=== PATIENT | female | born 1980 | race African-American/Black ===

== ENCOUNTER 2017-09-15 14:25 | Observation (INO) | payer MEDICARE, MEDICAID ==
[~2017-09-15] VITALS: Ht 162.6 cm; Wt 70.0 kg
[~2017-09-15 14:25] MED LIST: VALA500T PO
[2017-09-15 14:30] VITALS: BP 124/67; PULSE 52; RESP 16; TEMP 98.3; O2SAT 100
[2017-09-15] MEDS ORDERED: SODIUM CHLORIDE 0.9% FLUSH 10 ML FLUSH IVF PRN (15:00)
[2017-09-15] MEDS ORDERED: ASPIRIN 81 MG CHEW TAB PO ONE (15:00)
[2017-09-15] MEDS ORDERED: MORPHINE SULFATE 4 MG/ML INJ IV PUSH ONE (15:00)
[2017-09-15] MEDS ORDERED: SODIUM CHLORID 0.9% 500 ML INJ 500 ML IV ONE (15:00)
[2017-09-15] MEDS ORDERED: estrogen (15:04)
[2017-09-15 15:05] VITALS: O2SAT 100
[2017-09-15 15:24] LABS: AUTOMATED NEUTROPHIL # 2.5 TH/MM3 (1.8-7.7); BASOPHIL % 0.5 % (0.0-2.0); EOSINOPHIL # 0.1 TH/MM3 (0-0.4); EOSINOPHIL % 1.6 % (0.0-4.0); HEMOGLOBIN 12.6 GM/DL (11.6-15.3); LYMPH % 43.5 % (9.0-44.0); LYMPHOCYTE # 2.3 TH/MM3 (1.0-4.8); MEAN CELL VOLUME 92.8 FL (80.0-100.0); MEAN CORPUSCULAR HEMOGLOBIN 30.7 PG (27.0-34.0); MEAN CORPUSCULAR HGB CONC 33.1 % (32.0-36.0); MEAN PLATELET VOLUME 8.4 FL (7.0-11.0); MONOCYTE # 0.3 TH/MM3 (0-0.9); NEUT % 48.4 % (16.0-70.0); PLATELET COUNT 211 TH/MM3 (150-450); RED BLOOD COUNT 4.09 MIL/MM3 (4.00-5.30); RED CELL DISTRIBUTION WIDTH 14.4 % (11.6-17.2); WHITE BLOOD COUNT 5.2 TH/MM3 (4.0-11.0)
[2017-09-15 15:34] LABS: PROTHROMBIN TIME - PATIENT 10.3 SEC (9.8-11.6)
--- NOTE | 2017-09-15 15:36 | PD ---
HPI Chief Complaint: Chest Pain Time Seen by Provider: 14:39 Travel History International Travel<30 days: No Contact w/Intl Traveler<30days: No Traveled to known affect area: No History of Present Illness HPI Patient is a 37-year-old female presenting to the emergency department for evaluation of chest pain. Chest pain started yesterday, patient initially thought it was indigestion. When symptoms did not improve this morning patient presented to the emergency department. Patient reports that the chest pain is accompanied by shortness of breath and she feels lightheaded. The pain radiates to her right arm. She states it is pressure-like. She rates her pain 8 out of 10, constant. Patient has a history of cervical cancer. She is currently on hormone replacement. She denies any early family history of heart disease. Her mother at 53 of cancer. She does not know her father. Patient has no history of blood clots. PFSH Past Medical History Anemia: Yes Asthma: Yes Depression: Yes Cancer: Yes (cervical) Cardiovascular Problems: Yes Chemotherapy: Yes (HX OF) GERD: Yes Genitourinary: Yes Headaches: Yes (MIGRAINES) Musculoskeletal: No Psychiatric: Yes (POST DEPRESSION) Migraines: Yes Influenza Vaccination: No ?: Not : 5 Para: 4 Miscarriage: 1 : 00 Dilation and Curettage (D&C): Yes Tubal Ligation: Yes Past Surgical History Gynecologic Surgery: Yes (D&C) Hysterectomy: Yes Other Surgery: Yes (port a cath placed and removed) Social History Alcohol Use: No Tobacco Use: No Substance Use: Yes (marijuana) Allergies-Medications (Allergen,Severity, Reaction): Coded Allergies: oxacillin (Unverified Allergy, Severe, 09/15/17) hives sulfamethoxazole (Unverified Allergy, Severe, 09/15/17) HIVES trimethoprim (Unverified Allergy, Severe, 09/15/17) HIVES Reported Meds & Prescriptions Reported Meds & Active Scripts Active Valacyclovir (Valacyclovir HCl) 500 Mg Tab 500 Mg PO BID At the onset of symptoms, take for 3 days. Reported [estrogen ] Review of Systems Except as stated in HPI: all other systems reviewed are Neg HENT: Positive: Lightheadedness, No: Headaches Cardiovascular: Positive: Chest Pain or Discomfort, Dyspnea on exertion Respiratory: Positive: Shortness of Breath Gastrointestinal: No: Nausea, Abdominal Pain Neurologic: Positive: Dizziness Physical Exam Narrative GENERAL: Well-developed, well-nourished, alert -[place] female. Presenting in no acute distress SKIN: Warm and dry. HEAD: Atraumatic. Normocephalic. EYES: Pupils equal and round. No scleral icterus. No injection or drainage. ENT: No nasal bleeding or discharge. Mucous membranes pink and moist. NECK: Trachea midline. No JVD. CARDIOVASCULAR: Regular rate and rhythm. RESPIRATORY: No accessory muscle use. Clear to auscultation. Breath sounds equal bilaterally. GASTROINTESTINAL: Abdomen soft, non-tender, nondistended. Hepatic and splenic margins not palpable. MUSCULOSKELETAL: Extremities without clubbing, cyanosis, or edema. No obvious deformities. NEUROLOGICAL: Awake and alert. No obvious cranial nerve deficits. Motor grossly within normal limits. Five out of 5 muscle strength in the arms and legs. Normal speech. PSYCHIATRIC: Appropriate mood and affect; insight and judgment normal. Data Data Last Documented VS Vital Signs Date Time Temp Pulse Resp B/P (MAP) Pulse Ox O2 Delivery O2 Flow Rate FiO2 09/15/17 15:05 100 Room Air 09/15/17 14:30 98.3 52 16 124/67 (86) Orders Orders Electrocardiogram (09/15/17 15:00) B-Type Natriuretic Peptide (09/15/17 15:00) Ckmb (Isoenzyme) Profile (09/15/17 15:00) Complete Blood Count With Diff (09/15/17 15:00) Comprehensive Metabolic Panel (09/15/17 15:00) Magnesium (Mg) (09/15/17 15:00) Prothrombin Time / Inr (Pt) (09/15/17 15:00) Act Partial Throm Time (Ptt) (09/15/17 15:00) Troponin I (09/15/17 15:00) Lipase (09/15/17 15:00) Chest, Single Ap (09/15/17 15:00) Ecg Monitoring (09/15/17 15:00) Bilateral Bp Monitoring (09/15/17 15:00) Iv Access Insert/Monitor (09/15/17 15:00) Oximetry (09/15/17 15:00) Oxygen Administration (09/15/17 15:00) Aspirin Chew (Aspirin Chew) (09/15/17 15:00) Morphine Inj (Morphine Inj) (09/15/17 15:00) Sodium Chloride 0.9% Flush (Ns Flush) (09/15/17 15:00) Sodium Chlorid 0.9% 500 Ml Inj (Ns 500 M (09/15/17 15:00) Ct Pulmonary Angiogram (09/15/17 ) CKMB (09/15/17 15:04) CKMB% (09/15/17 15:04) Al-Mag Hy-Si 40-40-4 Mg/Ml Liq (Mag-Al P (09/15/17 16:15) Iohexol 350 Inj (Omnipaque 350 Inj) (09/15/17 17:07) Admit Order (Ed Use Only) (09/15/17 17:22) Labs Laboratory Tests Test 09/15/17 15:04 White Blood Count 5.2 TH/MM3 Red Blood Count 4.09 MIL/MM3 Hemoglobin 12.6 GM/DL Hematocrit 38.0 % Mean Corpuscular Volume 92.8 FL Mean Corpuscular Hemoglobin 30.7 PG Mean Corpuscular Hemoglobin Concent 33.1 % Red Cell Distribution Width 14.4 % Platelet Count 211 TH/MM3 Mean Platelet Volume 8.4 FL Neutrophils (%) (Auto) 48.4 % Lymphocytes (%) (Auto) 43.5 % Monocytes (%) (Auto) 6.0 % Eosinophils (%) (Auto) 1.6 % Basophils (%) (Auto) 0.5 % Neutrophils # (Auto) 2.5 TH/MM3 Lymphocytes # (Auto) 2.3 TH/MM3 Monocytes # (Auto) 0.3 TH/MM3 Eosinophils # (Auto) 0.1 TH/MM3 Basophils # (Auto) 0.0 TH/MM3 CBC Comment DIFF FINAL Differential Comment Prothrombin Time 10.3 SEC Prothromb Time International Ratio 1.0 RATIO Activated Partial Thromboplast Time 27.5 SEC Blood Urea Nitrogen 10 MG/DL Creatinine 0.77 MG/DL Random Glucose 89 MG/DL Total Protein 8.8 GM/DL Albumin 4.3 GM/DL Calcium Level 9.2 MG/DL Magnesium Level 2.1 MG/DL Alkaline Phosphatase 82 U/L Aspartate Amino Transf (AST/SGOT) 49 U/L Alanine Aminotransferase (ALT/SGPT) 30 U/L Total Bilirubin 0.3 MG/DL Sodium Level 139 MEQ/L Potassium Level 3.5 MEQ/L Chloride Level 103 MEQ/L Carbon Dioxide Level 28.2 MEQ/L Anion Gap 8 MEQ/L Estimat Glomerular Filtration Rate 101 ML/MIN Total Creatine Kinase 142 U/L Creatine Kinase MB 0.8 NG/ML Troponin I LESS THAN 0.02 NG/ML Lipase 269 U/L MDM Medical Decision Making Medical Screen Exam Complete: Yes Emergency Medical Condition: Yes Interpretation(s) Last Impressions Chest X-Ray 09/15/17 1500 Signed Impressions: CONCLUSION: No acute cardiopulmonary abnormality is identified. CT Angiography 09/15/17 0000 Signed Impressions: CONCLUSION: 1. No CT evidence for pulmonary artery embolism, as questioned. 2. Unremarkable CT examination of the chest. Laboratory Tests Test 09/15/17 15:04 White Blood Count 5.2 TH/MM3 Red Blood Count 4.09 MIL/MM3 Hemoglobin 12.6 GM/DL Hematocrit 38.0 % Mean Corpuscular Volume 92.8 FL Mean Corpuscular Hemoglobin 30.7 PG Mean Corpuscular Hemoglobin Concent 33.1 % Red Cell Distribution Width 14.4 % Platelet Count 211 TH/MM3 Mean Platelet Volume 8.4 FL Neutrophils (%) (Auto) 48.4 % Lymphocytes (%) (Auto) 43.5 % Monocytes (%) (Auto) 6.0 % Eosinophils (%) (Auto) 1.6 % Basophils (%) (Auto) 0.5 % Neutrophils # (Auto) 2.5 TH/MM3 Lymphocytes # (Auto) 2.3 TH/MM3 Monocytes # (Auto) 0.3 TH/MM3 Eosinophils # (Auto) 0.1 TH/MM3 Basophils # (Auto) 0.0 TH/MM3 CBC Comment DIFF FINAL Differential Comment Prothrombin Time 10.3 SEC Prothromb Time International Ratio 1.0 RATIO Activated Partial Thromboplast Time 27.5 SEC Blood Urea Nitrogen 10 MG/DL Creatinine 0.77 MG/DL Random Glucose 89 MG/DL Total Protein 8.8 GM/DL Albumin 4.3 GM/DL Calcium Level 9.2 MG/DL Magnesium Level 2.1 MG/DL Alkaline Phosphatase 82 U/L Aspartate Amino Transf (AST/SGOT) 49 U/L Alanine Aminotransferase (ALT/SGPT) 30 U/L Total Bilirubin 0.3 MG/DL Sodium Level 139 MEQ/L Potassium Level 3.5 MEQ/L Chloride Level 103 MEQ/L Carbon Dioxide Level 28.2 MEQ/L Anion Gap 8 MEQ/L Estimat Glomerular Filtration Rate 101 ML/MIN Total Creatine Kinase 142 U/L Creatine Kinase MB 0.8 NG/ML Troponin I LESS THAN 0.02 NG/ML Lipase 269 U/L Vital Signs Date Time Temp Pulse Resp B/P (MAP) Pulse Ox O2 Delivery O2 Flow Rate FiO2 09/15/17 15:05 100 Room Air 09/15/17 14:30 98.3 52 16 124/67 (86) 100 Differential Diagnosis ACS versus [place] versus pneumonia versus pulmonary embolism versus indigestion versus metabolic abnormality versus cardiac arrhythmia versus other Narrative Course Patient is a 37-year-old female presented to the emergency department for evaluation of chest pain. Patient is well-appearing, her vital signs are stable. She is mildly bradycardic however patient is well condition and works out regularly. Labs and imaging ordered and pending. Initial EKG shows sinus bradycardia with a rate of 48 with an incomplete right bundle branch block. Labs reviewed, no acute findings identified. Chest x-ray shows no acute disease. CT pulmonary angiogram is negative for pulmonary embolism. Patient was also seen and evaluated by attending physician. Patient discussed with her a possible clogged artery that was diagnosed a few years ago. At this time patient be placed in the chest pain center for further evaluation. Patient is agreeable. Diagnosis Primary Impression: Chest pain Qualified Codes: R07.9 - Chest pain, unspecified Admitting Information Admitting Physician Requests: Observation Condition: Stable Huma Schmid Sep 15, 2017 15:36
[2017-09-15 15:42] LABS: ALBUMIN 4.3 GM/DL (3.4-5.0); ALT (GPT) 30 U/L (10-53); AST (GOT) 49 U/L (15-37); BICARBONATE 28.2 MEQ/L (21.0-32.0); BLOOD UREA NITROGEN 10 MG/DL (7-18); CALCIUM 9.2 MG/DL (8.5-10.1); CHLORIDE 103 MEQ/L (98-107); CREATININE 0.77 MG/DL (0.50-1.00); GLOMERULAR FILTRATION RATE 101 ML/MIN (>89); GLUCOSE,RANDOM 89 MG/DL (74-106); MAGNESIUM 2.1 MG/DL (1.5-2.5); SODIUM (NA) 139 MEQ/L (136-145)
[2017-09-15 15:46] LABS: ALKALINE PHOSPHATASE 82 U/L (45-117); TOTAL BILIRUBIN ADULT 0.3 MG/DL (0.2-1.0); TOTAL PROTEIN 8.8 GM/DL (6.4-8.2); TROPONIN I LESS THAN 0.02 NG/ML (0.02-0.05)
--- NOTE | 2017-09-15 15:54 | RADRPT ---
EXAM DATE: 09/15/2017 3:38 PM EDT AGE/SEX: 37 years / Female INDICATIONS: Pain to anterior and left chest. CLINICAL DATA: This is the patient's initial encounter. Patient reports that signs and symptoms have been present for 1 day and indicates a pain score of 6/10. MEDICAL/SURGICAL HISTORY: . Asthma. None. COMPARISON: No prior exams available for comparison. FINDINGS: Portable AP view of the chest demonstrates a normal-sized cardiac silhouette. No effusion, consolidat ion, or pneumothorax is identified. The bones and soft tissues demonstrate no acute finding. EKG line s overlie the patient. CONCLUSION: No acute cardiopulmonary abnormality is identified. Electronically signed by: Abe Davis MD 09/15/2017 3:52 PM EDT
[2017-09-15] MEDS ORDERED: ALUMINUM/MAGNESIUM/SIMETH 30 ML CUP PO ONE (16:15)
[2017-09-15] MEDS ORDERED: IOHEXOL 350 MG/ML 10 ML VIAL (for RAD DIAG) IVCONTRAST ONE (17:07)
--- NOTE | 2017-09-15 17:13 | RADRPT ---
EXAM DATE: 09/15/2017 5:05 PM EDT AGE/SEX: 37 years / Female INDICATIONS: Right sided chest pain, shortness of breath. CLINICAL DATA: This is the patient's initial encounter. Patient reports that signs and symptoms have been present for 2 days and indicates a pain score of 8/10. MEDICAL/SURGICAL HISTORY: Cerebrovascular disease. Gastroesophageal reflux disease. Anemia. Cerv ical cancer. Hysterectomy. Tubal ligation. RADIATION DOSE: 8.18 CTDI (mGy) COMPARISON: [facility] [place], CHEST SINGLE AP, 09/15/2017. . TECHNIQUE: Volumetric scanning was performed using a multi-row detector CT scanner during bolus infu john of 74 ml Omnipaque 350 (iohexol) nonionic water-soluble contrast as a single exam dose. The kandice a was post processed with a variety of visualization algorithms including full volume maximum intensi ty projection and sliding thin slab reformation. Using automated exposure control and adjustment of the mA and/or kV according to patient size, radiation dose was kept as low as reasonably achievable t o obtain optimal diagnostic quality images. DICOM format image data is available electronically for review and comparison. FINDINGS: Pulmonary Arteries: No filling defects are seen in the pulmonary arteries through the segmental vess els. The main pulmonary artery is normal in diameter. Lung: No focal parenchymal abnormalities. Pleura: No effusion, significant pleural thickening or pneumothorax. Mediastinum: Subcentimeter mediastinal nodes do not meet CT size criteria. Borderline heart size wit hout pericardial effusion. Osseous Structures: No abnormal focal lytic or blastic bony lesions. Other: Visulaized upper abdomen is unremarkable. CONCLUSION: 1. No CT evidence for pulmonary artery embolism, as questioned. 2. Unremarkable CT examination of the chest. Electronically signed by: Juaquin Tyler MD 09/15/2017 5:12 PM EDT
--- NOTE | 2017-09-15 17:29 | PD ---
Physical Exam Narrative GENERAL: 37 y/o female in no apparent distress SKIN: Focused skin assessment warm/dry. HEAD: Atraumatic. Normocephalic. EYES: Pupils equal and round. No scleral icterus. No injection or drainage. ENT: No nasal bleeding or discharge. Mucous membranes pink and moist. NECK: Trachea midline. No JVD. CARDIOVASCULAR: Regular rate and rhythm. No murmur appreciated. RESPIRATORY: No accessory muscle use. no increased effort GASTROINTESTINAL: Abdomen nondistended. MUSCULOSKELETAL: No obvious deformities. No clubbing. No cyanosis. NEUROLOGICAL: Awake and alert. No obvious cranial nerve deficits. Motor grossly within normal limits. Normal speech. PSYCHIATRIC: Appropriate mood and affect; insight and judgment normal. Data Data Last Documented VS Vital Signs Date Time Temp Pulse Resp B/P (MAP) Pulse Ox O2 Delivery O2 Flow Rate FiO2 09/15/17 15:05 100 Room Air 09/15/17 14:30 98.3 52 16 124/67 (86) Orders Orders Electrocardiogram (09/15/17 15:00) B-Type Natriuretic Peptide (09/15/17 15:00) Ckmb (Isoenzyme) Profile (09/15/17 15:00) Complete Blood Count With Diff (09/15/17 15:00) Comprehensive Metabolic Panel (09/15/17 15:00) Magnesium (Mg) (09/15/17 15:00) Prothrombin Time / Inr (Pt) (09/15/17 15:00) Act Partial Throm Time (Ptt) (09/15/17 15:00) Troponin I (09/15/17 15:00) Lipase (09/15/17 15:00) Chest, Single Ap (09/15/17 15:00) Ecg Monitoring (09/15/17 15:00) Bilateral Bp Monitoring (09/15/17 15:00) Iv Access Insert/Monitor (09/15/17 15:00) Oximetry (09/15/17 15:00) Oxygen Administration (09/15/17 15:00) Aspirin Chew (Aspirin Chew) (09/15/17 15:00) Morphine Inj (Morphine Inj) (09/15/17 15:00) Sodium Chloride 0.9% Flush (Ns Flush) (09/15/17 15:00) Sodium Chlorid 0.9% 500 Ml Inj (Ns 500 M (09/15/17 15:00) Ct Pulmonary Angiogram (09/15/17 ) CKMB (09/15/17 15:04) CKMB% (09/15/17 15:04) Al-Mag Hy-Si 40-40-4 Mg/Ml Liq (Mag-Al P (09/15/17 16:15) Iohexol 350 Inj (Omnipaque 350 Inj) (09/15/17 17:07) Admit Order (Ed Use Only) (09/15/17 17:22) Labs Laboratory Tests Test 09/15/17 15:04 White Blood Count 5.2 TH/MM3 Red Blood Count 4.09 MIL/MM3 Hemoglobin 12.6 GM/DL Hematocrit 38.0 % Mean Corpuscular Volume 92.8 FL Mean Corpuscular Hemoglobin 30.7 PG Mean Corpuscular Hemoglobin Concent 33.1 % Red Cell Distribution Width 14.4 % Platelet Count 211 TH/MM3 Mean Platelet Volume 8.4 FL Neutrophils (%) (Auto) 48.4 % Lymphocytes (%) (Auto) 43.5 % Monocytes (%) (Auto) 6.0 % Eosinophils (%) (Auto) 1.6 % Basophils (%) (Auto) 0.5 % Neutrophils # (Auto) 2.5 TH/MM3 Lymphocytes # (Auto) 2.3 TH/MM3 Monocytes # (Auto) 0.3 TH/MM3 Eosinophils # (Auto) 0.1 TH/MM3 Basophils # (Auto) 0.0 TH/MM3 CBC Comment DIFF FINAL Differential Comment Prothrombin Time 10.3 SEC Prothromb Time International Ratio 1.0 RATIO Activated Partial Thromboplast Time 27.5 SEC Blood Urea Nitrogen 10 MG/DL Creatinine 0.77 MG/DL Random Glucose 89 MG/DL Total Protein 8.8 GM/DL Albumin 4.3 GM/DL Calcium Level 9.2 MG/DL Magnesium Level 2.1 MG/DL Alkaline Phosphatase 82 U/L Aspartate Amino Transf (AST/SGOT) 49 U/L Alanine Aminotransferase (ALT/SGPT) 30 U/L Total Bilirubin 0.3 MG/DL Sodium Level 139 MEQ/L Potassium Level 3.5 MEQ/L Chloride Level 103 MEQ/L Carbon Dioxide Level 28.2 MEQ/L Anion Gap 8 MEQ/L Estimat Glomerular Filtration Rate 101 ML/MIN Total Creatine Kinase 142 U/L Creatine Kinase MB 0.8 NG/ML Troponin I LESS THAN 0.02 NG/ML Lipase 269 U/L [facility] Supervised Visit with DAMASO: Yes Interpretation(s) CBC & BMP Diagram 09/15/17 15:04 Total Protein 8.8 H, Albumin 4.3, Calcium Level 9.2, Magnesium Level 2.1, Alkaline Phosphatase 82, Aspartate Amino Transf (AST/SGOT) 49 H, Alanine Aminotransferase (ALT/SGPT) 30, Total Bilirubin 0.3 Last 24 hours Impressions Chest X-Ray 09/15/17 1500 Signed Impressions: CONCLUSION: No acute cardiopulmonary abnormality is identified. CT Angiography 09/15/17 0000 Signed Impressions: CONCLUSION: 1. No CT evidence for pulmonary artery embolism, as questioned. 2. Unremarkable CT examination of the chest. Narrative Course I, Dr. ring, have reviewed the advance practice practitioner's documentation and am in agreement, met with the patient face to face, made the diagnosis, and the medical decision making was done by me. *My assessment and Findings: Patient with noted chest pain. She is on hormone replacement and history of cervical cancer. CT shows no PE. She states that a couple years ago she was told she had a clogged artery to her heart but did not have a stent. She states she has not had a heart catheterization I believe this was on a stress test that she is describing. Will place in the chest pain center for further observation which she agrees to. Diagnosis Primary Impression: Chest pain Qualified Codes: R07.9 - Chest pain, unspecified Admitting Information Admitting Physician Requests: Observation Rozina Ring MD Sep 15, 2017 17:29
[2017-09-15 19:46] VITALS: BP 118/66; PULSE 51; O2SAT 100
[2017-09-15 21:55] VITALS: PULSE 46
[2017-09-15] MEDS ORDERED: ONDANSETRON ODT 4 MG TAB PO PRN (22:45)
[2017-09-15] MEDS ORDERED: ACETAMINOPHEN 325 MG TAB PO PRN (22:45)
[2017-09-15] MEDS ORDERED: MORPHINE SULFATE 4 MG/ML INJ IV PRN (22:45)
[2017-09-15 23:45] VITALS: BP 94/54; PULSE 46; RESP 16; TEMP 98.4; O2SAT 99
[2017-09-16 00:30] VITALS: PULSE 45
[2017-09-16 03:02] VITALS: BP 89/47; PULSE 49; RESP 16; TEMP 98; O2SAT 100
[2017-09-16 04:00] VITALS: PULSE 43
[2017-09-16 07:20] VITALS: PULSE 38
--- NOTE | 2017-09-16 07:37 | EKG ---
Date Performed: 09/15/2017 Time Performed: 14:56:00 PTAGE: 37 years EKG: SINUS BRADYCARDIA INCOMPLETE RIGHT BUNDLE BRANCH BLOCK BORDERLINE ECG PREVIOUS TRACING : 03/28/2016 07.53 DOCTOR: Caio Campbell Interpretating Date/Time 09/16/2017 07:32:53
[2017-09-16 07:43] VITALS: BP 98/55; PULSE 62; RESP 18; TEMP 98; O2SAT 100
--- NOTE | 2017-09-16 08:00 | HHI.HP ---
HPI Primary Care Physician Unknown Chief Complaint Chest pain History of Present Illness 37-year-old female without significant medical history presents the emergency room for further evaluation chest pain. Onset 2 days. Substernal. Nonexertional. Duration constant. Characterized as pressure. Initially felt discomfort made for indigestion. No associated symptoms of nausea, vomiting, dyspnea, or diaphoresis. Deep breathing does not make pain better or worse. No particular movement makes pain better or worse. Denies similar pain in the past. No known precipitating or relieving factors. Bilateral fingertips also reported to feel numb x2 days. Review of Systems General: No fatigue, weakness, fever, chills, or recent illness. Has been her general state of health. HEENT: No KRAFT, no vision changes, no dysphasia CV: Continues to have chest pressure as stated above. No palpitations or dizziness. RESP: No SOB, cough, wheeze. History of asthma. GI: No nausea, vomiting, or bowel changes. : No dysuria, urgency, frequency EXT: No lower leg edema MS: No discomfort, injury, or change in ROM NEURO: No difficulty with balance, LOC, motor/sensory deficits PSYCH: No anxiety, depression, or suicidal ideation SKIN: No rashes, no concerning lesions Past Family Social History Allergies: Coded Allergies: oxacillin (Unverified Allergy, Severe, 09/15/17) hives sulfamethoxazole (Unverified Allergy, Severe, 09/15/17) HIVES trimethoprim (Unverified Allergy, Severe, 09/15/17) HIVES Past Medical History Asthma, cervical cancer stage III (2007) Past Surgical History Tubal ligation, D&C Reported Medications Reported Meds & Active Scripts Active Valacyclovir (Valacyclovir HCl) 500 Mg Tab 500 Mg PO BID At the onset of symptoms, take for 3 days. Reported [estrogen ] Active Ordered Medications Current Medications Medications (Trade) Dose Ordered Sig/Kimberly Route Start Time Stop Time Status Last Admin (NS Flush) 2 ml UNSCH PRN IVF 09/15/17 15:00 (Zofran Odt) 4 mg Q6H PRN PO 09/15/17 22:45 09/15/17 22:45 (Tylenol) 325 mg Q6H PRN PO 09/15/17 22:45 (Morphine Inj) 4 mg Q4H PRN IV 09/15/17 22:45 Family History Noncontributory for early onset cardiovascular disease Social History No known hypertension, diabetes, or hyperlipidemia. Lifelong non-smoker. Denies any alcohol or illegal drug use. Endorses an active lifestyle, goes to the gym 2-3x/week generally for 2 hours. Past cardiac testing Remote exercise cardiac testing while living in [place]. Physical Exam Vital Signs Vital Signs Date Time Temp Pulse Resp B/P (MAP) Pulse Ox O2 Delivery O2 Flow Rate FiO2 09/16/17 07:43 98.0 62 18 98/55 (69) 100 09/16/17 04:00 43 09/16/17 03:02 98.0 49 16 89/47 (61) 100 09/16/17 00:30 45 09/15/17 23:45 98.4 46 16 94/54 (67) 99 09/15/17 21:55 46 09/15/17 19:46 51 118/66 (83) 100 09/15/17 15:05 100 Room Air 09/15/17 14:30 98.3 52 16 124/67 (86) 100 Physical Exam GENERAL: Alert WN, WD, NAD, pleasant, -[place] female HEAD: NC, AT CV: RRR, without murmur, rub, or gallop, no JVD, no S3-S4. Chest wall nontender with palpation. RESP: Clear lungs throughout bilateral, no crackles, wheeze, rhonchi, symmetrical chest rise, nonlabored, able to speak in full sentences ABD: Soft, NT, ND, no masses, positive bowel tones EXT: Pulses +2x4, no dependent edema MS: Normal tone x4 extremities, no obvious deformities, full range of motion NEURO: CN II through CN XII grossly intact, motor strength 5/5 PSYCH: A+O x3, pleasant affect, appropriate speech, mood, insight and judgment SKIN: Normal turgor, normal texture Laboratory Laboratory Tests Test 09/15/17 15:04 09/15/17 21:15 09/15/17 23:40 White Blood Count 5.2 Red Blood Count 4.09 Hemoglobin 12.6 Hematocrit 38.0 Mean Corpuscular Volume 92.8 Mean Corpuscular Hemoglobin 30.7 Mean Corpuscular Hemoglobin Concent 33.1 Red Cell Distribution Width 14.4 Platelet Count 211 Mean Platelet Volume 8.4 Neutrophils (%) (Auto) 48.4 Lymphocytes (%) (Auto) 43.5 Monocytes (%) (Auto) 6.0 Eosinophils (%) (Auto) 1.6 Basophils (%) (Auto) 0.5 Neutrophils # (Auto) 2.5 Lymphocytes # (Auto) 2.3 Monocytes # (Auto) 0.3 Eosinophils # (Auto) 0.1 Basophils # (Auto) 0.0 CBC Comment DIFF FINAL Differential Comment Prothrombin Time 10.3 Prothromb Time International Ratio 1.0 Activated Partial Thromboplast Time 27.5 Blood Urea Nitrogen 10 Creatinine 0.77 Random Glucose 89 Total Protein 8.8 Albumin 4.3 Calcium Level 9.2 Magnesium Level 2.1 Alkaline Phosphatase 82 Aspartate Amino Transf (AST/SGOT) 49 Alanine Aminotransferase (ALT/SGPT) 30 Total Bilirubin 0.3 Sodium Level 139 Potassium Level 3.5 Chloride Level 103 Carbon Dioxide Level 28.2 Anion Gap 8 Estimat Glomerular Filtration Rate 101 Total Creatine Kinase 142 Creatine Kinase MB 0.8 Troponin I LESS THAN 0.02 LESS THAN 0.02 LESS THAN 0.02 B-Type Natriuretic Peptide 8 Lipase 269 Result Diagram: 09/15/17 1504 09/15/17 1504 Imaging Last 48 hours Impressions Chest X-Ray 09/15/17 1500 Signed Impressions: CONCLUSION: No acute cardiopulmonary abnormality is identified. CT Angiography 09/15/17 0000 Signed Impressions: CONCLUSION: 1. No CT evidence for pulmonary artery embolism, as questioned. 2. Unremarkable CT examination of the chest. Course EKG NSR, no st t segment changes Caprini VTE Risk Assessment Caprini VTE Risk Assessment: No/Low Risk (score <= 1) Caprini Risk Assessment Model Point Value = 1 Point Value = 2 Point Value = 3 Point Value = 5 Age 41-60 Minor surgery BMI > 25 kg/m2 Swollen legs Varicose veins or History of unexplained or recurrent spontaneous Oral contraceptives or hormone replacement Sepsis (< 1 month) Serious lung disease, including pneumonia (< 1 month) Abnormal pulmonary function Acute myocardial infarction Congestive heart failure (< 1 month) History of inflammatory bowel disease Medical patient at bed rest Age 61-74 Arthroscopic surgery Major open surgery (> 45 min) Laparoscopic surgery (> 45 min) Malignancy Confined to bed (> 72 hours) Immobilizing plaster cast Central venous access Age >= 75 History of VTE Family history of VTE Factor V Leiden Prothrombin [id number] Lupus anticoagulant Anticardiolipin antibodies Elevated serum homocysteine Heparin-induced thrombocytopenia Other congenital or acquired thrombophilia Stroke (< 1 month) Elective arthroplasty Hip, pelvis, or leg fracture Acute spinal cord injury (< 1 month) Prophylaxis Regimen Total Risk Factor Score Risk Level Prophylaxis Regimen 0-1 Low Early ambulation 2 Moderate Order ONE of the following: *Sequential Compression Device (SCD) *Heparin 5000 units SQ BID 3-4 Higher Order ONE of the following medications: *Heparin 5000 units SQ TID *Enoxaparin/Lovenox 40 mg SQ daily (WT < 150 kg, CrCl > 30 mL/min) *Enoxaparin/Lovenox 30 mg SQ daily (WT < 150 kg, CrCl > 10-29 mL/min) *Enoxaparin/Lovenox 30 mg SQ BID (WT < 150 kg, CrCl > 30 mL/min) AND/OR *Sequential Compression Device (SCD) 5 or more Highest Order ONE of the following medications: *Heparin 5000 units SQ TID (Preferred with Epidurals) *Enoxaparin/Lovenox 40 mg SQ daily (WT < 150 kg, CrCl > 30 mL/min) *Enoxaparin/Lovenox 30 mg SQ daily (WT < 150 kg, CrCl > 10-29 mL/min) *Enoxaparin/Lovenox 30 mg SQ BID (WT < 150 kg, CrCl > 30 mL/min) AND *Sequential Compression Device (SCD) Assessment and Plan Assessment and Plan #1 Atypical chest pain-admitted to chest pain center. ACS ruled out with 3 sets of EKGs and cardiac enzymes. Monitored on telemetry overnight. Seen and evaluated by Dr. Kyaw Mesa. Proceed with exercise cardiac stress testing this morning. If unremarkable, plans to be discharged home with follow-up with PCP. Patient verbalizes understanding and agreeable to plan of care. 1030-Patient made aware a delay with treadmill study due to software issues. Given option to wait while IT works on issue or to complete a myoview perfusion study test. Declines both options, states she will sign out AGAINST MEDICAL ADVICE and that she does not believe discomfort is cardiac related. Reports the only reason she came in the ER was because of coworkers encouragement. Instructed to return the ER for any further concerns. Ilene Paiz Sep 16, 2017 08:00
--- NOTE | 2017-09-16 14:13 | EKG ---
Date Performed: 09/15/2017 Time Performed: 23:47:16 PTAGE: 37 years EKG: SINUS BRADYCARDIA WITH FIRST DEGREE AV BLOCK POSSIBLE RIGHT VENTRICULAR CONDUCTION DELAY AB NORMAL ECG PREVIOUS TRACING : 09/15/2017 21.14 Since previous tracing, no significant change noted DOCTOR: Kyaw Mesa Interpretating Date/Time 09/16/2017 14:12:36
--- NOTE | 2017-09-16 14:14 | EKG ---
Date Performed: 09/15/2017 Time Performed: 21:14:18 PTAGE: 37 years EKG: SINUS BRADYCARDIA POSSIBLE RIGHT VENTRICULAR CONDUCTION DELAY BORDERLINE ECG PREVIOUS TRACING : 09/15/2017 14.56 Since previous tracing, no significant change noted DOCTOR: Kyaw Mesa Interpretating Date/Time 09/16/2017 14:12:58
== END 2017-09-16 11:36 | disposition left against medical advice (07) ==
LOC: NEPE 14:25 → NEDA 17:29 → NEPGCP 18:27
PROVIDERS: ADMIT Internal Medicine Interventional Cardiology; ATTEND Internal Medicine Interventional Cardiology
DX: R07.89 Other chest pain (principal); R06.02 Shortness of breath; R42 Dizziness and giddiness; R20.0 Anesthesia of skin; J45.909 Unspecified asthma, uncomplicated; I45.10 Unspecified right bundle-branch block; I44.0 Atrioventricular block, first degree; R00.1 Bradycardia, unspecified; K21.9 Gastro-esophageal reflux disease without esophagitis; F12.90 Cannabis use, unspecified, uncomplicated; Z85.41 Personal history of malignant neoplasm of cervix uteri; Z79.890 Hormone replacement therapy
CPT/HCPCS: 71045; 71275; 80053; 82550; 82552; 83690; 83735; 83880; 84484; 85025; 85610; 85730; 93005; 96361; 96374; 99285; G0378; J2270; J7040; Q9967